=== PATIENT | male | born 1960 | race Caucasian/White ===

== ENCOUNTER 2019-03-27 12:57 | Outpatient (CLI) | payer BC ==
[2019-03-27] MEDS ORDERED: Magnevist 469MG/ML 20 ML VIAL ONE (14:21)
--- NOTE | 2019-03-28 08:52 | MRI ---
MRI PELVIS WITH AND WITHOUT IV CONTRAST AND REVIEW AT INDEPENDENT 3D WORK STATION: (Prostate) HISTORY: Elevated PSA. Biopsy done about 5 years ago. COMPARISON: None. FINDINGS: The prostate measures 4.8 x 4 x 4.5 cm with a volume of 45 cc. No focal abnormal areas of diffuse restriction are seen in the transitional zone. The transitional zone demonstrates no lentiform area of abnormally decreased T2 signal. No focal arterial enhancing mass is seen. The prostate capsule is intact. The seminal vesicles are intact. No lymphadenopathy is identified. The pelvic sidewall is normal. There is sigmoid divertic ulosis. No abnormal areas of signal replacement are noted on the T1 weighted sequences of the pelvis to sugge st osseous metastatic disease. IMPRESSION: PIRADS 2: low (clinically significant prostate cancer is unlikely to be present). The study was interpreted in consultation with Dr. Torrey Pimentel who concurs. POS: OFF
== END 2019-03-27 12:58 | disposition home or self-care (01) ==
LOC: TBSIIMAG 12:57
PROVIDERS: ATTEND Urology
DX: R97.20 Elevated prostate specific antigen [PSA] (principal)
CPT/HCPCS: 72197; 87081; A9579